=== PATIENT | male | born 1960 | race Caucasian/White ===

== ENCOUNTER → 2016-11-20 | Outpatient (CLI) | payer OTHER ==
--- NOTE | 2016-11-20 12:26 | DI ---
XR L-SPINE MIN 4 VW,11/20/2016 9:02 AM: Clinical History: Low back pain and radiculopathy. Previous Exam: None at this facility. Findings: AP, lateral, flexion and extension views of the lumbar spine are obtained, and demonstrate near compl ete loss of intervertebral disc height at the L5/S1 level with endplate sclerosis. There is some mild facet arthropathy. A nonobstructive bowel gas pattern is seen. No pathologic calcifications are seen. Impression: Mild degenerative changes of the lumbar spine worst at the L5/S1 level.
--- NOTE | 2016-11-20 12:36 | DI ---
XR C-SPINE COMPLETE MIN 4VW,11/20/2016 9:26 AM: Clinical History: Osteoarthritis and postsurgical changes of the spine. Previous Exam: None at this facility. Findings: AP, lateral, flexion and extension views of the cervical spine are obtained, and demonstrate postsurg ical changes consistent with anterior screw and plate fixation of C3-C6. There is grade 2 anterolisth esis of C6 on C7 with endplate osteophyte formation, but no evidence of instability on flexion or ext ension. There is significant endplate degenerative change at this level. The prevertebral soft tissues are unremarkable. The upper lungs are unremarkable. Impression: Grade 2 anterolisthesis of C6 on C7 and anterior screw and plate fixation of the cervical spine as ab ove.
== END ==
LOC: ORTHO 10:35
PROVIDERS: ATTEND Physician Assistant
DX: M47.26 Other spondylosis with radiculopathy, lumbar region (principal); M47.22 Other spondylosis with radiculopathy, cervical region; Z98.1 Arthrodesis status
CPT/HCPCS: 72050; 72110

== ENCOUNTER → 2016-11-28 | Outpatient (CLI) | payer OTHER ==
--- NOTE | 2016-11-28 14:18 | DI ---
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 Previous Exam: Plain films performed November 20, 2016 Informed signed consent was obtained prior to the procedure. The patient was informed of benefits and risks, to include but not be limited, to allergies to medications (skin preparation agents, local an esthetic, and contrast agent), infection, and "spinal" headaches. The lower back was prepped with an alcohol solution. 1% lidocaine without epinephrine was used for in tradermal and subcutaneous local anesthesia. Under fluoroscopic guidance, a 22 gauge spinal needle was then introduced into the spinal canal from the left paraspinal approach at the level of L3. This was repeated multiple times at lower levels due to difficulty. The fourth attempt was successful at the L3 level. A single pass was performed and this revealed droplets of clear colorless CSF. 15 mL of Omipaque 300 was injected into the spinal canal with fluoroscopic monitoring. Spot films of the lumbar spine were obtained followed by a cross table lumbar spine view. The patient tolerated the procedure well and wa s transferred to the CT scan suite for the CT myelogram. The patient tolerated the procedure well. The patient was then discharged home and was instructed to minimize activity for the rest of the day. The patient was also instructed to push fluids for the rem ainder of the day and to sleep on an extra pillow with the head up if possible. The patient was advis ed to watch for signs of an infection (including but not limited to redness, swelling, fever) or an u nusually severe headache. The patient was instructed to either contact the x-ray department directly or to report to the Emergency Room immediately if problems arose. Findings: Multiple fluoroscopic images are obtained demonstrating contrast within the thecal sac. Reading: Successful myelogram. CT pending.
--- NOTE | 2016-11-28 14:18 | DI ---
CT THORACIC SPINE W/CONTRAST,11/28/2016 10:15 AM: Clinical History: Osteoarthritis of the spine with radiculopathy. Previous Exam: None at this facility. Findings: Multiple helically acquired CT images are obtained through the thoracic spine following intrathecal a dministration of Isovue 300. Vertebral body height is preserved. There is mild loss of intervertebral disc height at multiple levels as well. The spinal cord descends normally with normal course and caliber. Individual intervertebral disc spaces: T1/2: There is mild bilateral neural foraminal narrowing. T2/3: No significant stenosis. T3/4: Small broad-based disc bulge without significant stenosis. T4/5: No significant stenosis. T5/6: No significant stenosis. T6/7: No significant stenosis. T7/8: No significant stenosis. T8/9: No significant stenosis. T9/T1: No significant stenosis. T10/11: No significant stenosis. T11/12: There is a small broad-based disc causing mild central canal stenosis without significant kristina roforaminal stenosis T12/L1: There is a broad-based disc bulge contributing to mild central canal stenosis without signifi cant neuroforaminal narrowing. Impression: Mild broad-based disc bulges at T. 11/12 and T12/L1 causing mild central canal stenosis. Small broad-based disc bulge at T3/4.
--- NOTE | 2016-11-28 15:16 | DI ---
CT LUMBAR SPINE W/CONTRAST,11/28/2016 10:15 AM: Clinical History: Osteoarthritis of the spine with radiculopathy of the lumbar region. Previous Exam: Plain films performed November 20, 2016 Findings: Multiple helically acquired CT images are obtained through the lumbar spine following the intrathecal administration of contrast. There is some fat density noted within the thecal sac causing some compression of the distal thecal s ac. The spinal cord descends normally with a normal conus at the L1 level. Individual intervertebral disc spaces: 12/L1: There is a small broad-based disc bulge without significant stenosis. L1/2: No significant stenosis. L2/3: There is a broad-based disc bulge causing mild central canal stenosis and mild bilateral neural foraminal narrowing. L3/4: There is a broad-based disc bulge noted without significant neural foraminal narrowing or centr al canal stenosis. L4/5: There is a broad-based disc bulge combining with some facet and ligamentum flavum hypertrophy t o cause moderate central canal stenosis which is partially due to epidural lipomatosis. There is mild bilateral neural foraminal narrowing. L5/S1: There is near complete loss of intervertebral disc height with disc desiccation and facet hype rtrophy and ligamentum flavum hypertrophy combining with some epidural lipomatosis, to cause severe c entral canal stenosis. There is severe bilateral neural foraminal narrowing noted as well. Impression: 1. Epidural lipomatosis which is the major factor to the central canal stenosis of the distal cord. 2. Advanced degenerative disc disease at L5/S1 with facet hypertrophy contributing to severe bilatera l neural foraminal narrowing.
--- NOTE | 2016-11-28 16:51 | DI ---
CT CERVICAL SPINE W/CONTRAST,11/28/2016 10:15 AM: Clinical History: Osteoarthritis of the spine with radiculopathy in the lumbar region. Previous Exam: Plain films of the cervical spine performed November 20, 2016 Findings: Multiple helically acquired CT images are obtained through the cervical spine after intrathecal admin istration of Isovue 300. The skull base is unremarkable. Postsurgical changes of the cervical spine are seen consistent with screw and plate fixation of C3-C6 . There is grade 1 anterolisthesis of C6 on C7 with uncovertebral joint osteophyte formation. There is some motion artifact which limits evaluation through this level. There is significant central canal stenosis throughout the cervical spine with only a small amount of contrast seen. This is predominantly congenital stenosis however, there are multiple levels of uncov ertebral joint osteophyte formation extending posteriorly. Individual intervertebral disc spaces: C2/3: There is congenital central canal stenosis at this level as well as some small uncovertebral kristian int and facet arthropathy contributing to moderate bilateral neural foraminal narrowing and moderate central canal stenosis. C3/4: There is disc desiccation and uncovertebral joint osteophyte formation with some congenital shane nosis. This causes focal moderate to severe central canal stenosis and moderate to severe bilateral n eural foraminal narrowing. C4/5: There is fusion at this level and some central canal stenosis. There is uncovertebral joint ost eophyte formation and facet hypertrophy causing moderate to severe left and mild right neuroforaminal narrowing and moderate central canal stenosis. C5/6: There is disc desiccation, uncovertebral joint osteophyte formation and facet hypertrophy. Ther e is congenital central canal stenosis which is made worse by the uncovertebral joint osteophytes. Th ere is moderate to severe bilateral neural foraminal narrowing and moderate central canal stenosis. C6/7: There is some mild central canal stenosis and there is some facet and uncovertebral joint osteo phyte formation noted. There is mild neuroforaminal narrowing and mild central canal stenosis. C7/T1: Mild facet hypertrophy without significant central canal nor neural foraminal narrowing. Impression: C2/3: There is congenital central canal stenosis at this level as well as some small uncovertebral kristian int and facet arthropathy contributing to moderate bilateral neural foraminal narrowing and moderate central canal stenosis. C3/4: There is disc desiccation and uncovertebral joint osteophyte formation with some congenital shane nosis. This causes focal moderate to severe central canal stenosis and moderate to severe bilateral n eural foraminal narrowing. C4/5: There is fusion at this level and some central canal stenosis. There is uncovertebral joint ost eophyte formation and facet hypertrophy causing moderate to severe left and mild right neuroforaminal narrowing and moderate central canal stenosis. C5/6: There is disc desiccation, uncovertebral joint osteophyte formation and facet hypertrophy. Ther e is congenital central canal stenosis which is made worse by the uncovertebral joint osteophytes. Th ere is moderate to severe bilateral neural foraminal narrowing and moderate central canal stenosis. C6/7: There is some mild central canal stenosis and there is some facet and uncovertebral joint osteo phyte formation noted. There is mild neuroforaminal narrowing and mild central canal stenosis. C7/T1: Mild facet hypertrophy without significant central canal nor neural foraminal narrowing.
== END ==
LOC: RAD 09:53 → MERGE 09:53 → EDBD 09:53
PROVIDERS: ATTEND Physician Assistant
DX: M47.26 Other spondylosis with radiculopathy, lumbar region (principal); M47.814 Spondylosis without myelopathy or radiculopathy, thoracic region; M47.22 Other spondylosis with radiculopathy, cervical region; Z98.1 Arthrodesis status
CPT/HCPCS: 72126; 72129; 72132; 72240; 72255; 72265

== ENCOUNTER → 2016-12-20 | Outpatient (CLI) | payer OTHER ==
--- NOTE | 2016-12-21 08:34 | DI ---
MRI LUMBAR SPINE SCAN WITHOUT IV CONTRAST, 12/20/2016 10:27 AM: Clinical History: Low back pain. Previous Exam: None. Technique: Sagittal and axial T2 weighted; sagittal T1 weighted and T2 STIR; and axial PD. The vertebral bodies are of normal height and size. There is abnormally increased signal intensity in the inferior half of the L5 vertebral body in the superior half of S1 consistent with edema secondar y to mild compression fractures or due to motion at this level. There is a hemangioma of the body of T12. There is disc space narrowing at L5-S1. The remaining disc spaces are of normal height. All lumb ar disc spaces show desiccation change. The cord terminates at T12. The conus medullaris is normal. T he T10-11 disc space is normal. T11-12 and T12-L1 disc spaces both have a circumferentially bulging b ut not herniated discs without canal or neural foraminal stenosis. The L1-2 disc space is normal. L2- 3 has a circumferentially bulging but not herniated disc without canal or neural foraminal stenosis. L3-4 disc space has a normal disc without canal or neural foraminal stenosis. Hypertrophic changes of the apophyseal joints are present bilaterally. L4-5 has a circumferentially bulging but not herniate d disc with degenerative change of the apophyseal joints bilaterally. There is a considerable amount of epidural fat posteriorly and laterally producing spinal stenosis. There is no neural foraminal shane nosis. L5-S1 has a circumferentially bulging but not herniated disc with hypertrophic changes of the apophyseal joints. There is no bony canal stenosis but there is a defect of stenosis secondary to a p rominent amount of epidural fat both anteriorly and posteriorly. There is no neural foraminal stenosi s. Readin. L4-5 and L5-S1 both have bulging but not herniated discs. At both levels, the bony canal is of no rmal caliber, but there is a prominent amount of epidural fat that effectively is producing narrowing or stenosis of the thecal sac. Levels do not show neural foraminal stenosis. Both levels do have deg enerative arthritic change. 2. There are bulging but not herniated discs without canal or neural foraminal stenosis at T11-12, T 12-L1, L2-3, and L3-4. There are degenerative arthritic changes in the apophyseal joints at L3-4. 3. There is increased signal intensity at the L5-S1 level in each vertebral body. This change can be secondary to mild compression fractures or edema secondary to motion at this level. 4. The T10-11 and L1-2 disc spaces are normal.
== END ==
LOC: MRI 10:15
PROVIDERS: ATTEND Neurological Surgery
DX: M48.07 Spinal stenosis, lumbosacral region (principal); M47.816 Spondylosis without myelopathy or radiculopathy, lumbar region; M47.814 Spondylosis without myelopathy or radiculopathy, thoracic region
CPT/HCPCS: 72148

== ENCOUNTER 2017-06-27 12:03 | Inpatient (IN) ==
[2017-06-27] MEDS ORDERED: Sodium Chloride 0.9% 1,000 ML PRIMARY IV ONE (12:34)
[2017-06-27] MEDS ORDERED: NORMAL SALINE 10 ML SYRINGE FLUSH IVP PRN (12:34)
[2017-06-27 12:40] LABS: BASOPHILS # (AUTO) 0.02 10*3/UL; BASOPHILS % (AUTO) 0.3 % (0-1); EOSINOPHILS # (AUTO) 0.17 10*3/UL; EOSINOPHILS % (AUTO) 2.4 % (0-8); Hematocrit [HCT] 40.5 % (42.0-52.0); Hemoglobin [HGB] 13.8 g/dL (14.0-18.0); LYMPHOCYTES # (AUTO) 1.67 10*3/uL; MEAN CORPUSCULAR HEMOGLOBIN 31.9 PG (27-31); MEAN CORPUSCULAR HGB CONC 34.1 g/dL (33-37); MEAN CORPUSCULAR VOLUME 93.8 FL (80-90); MEAN PLATELET VOLUME 10.3 FL (7.4-12.2); MONOCYTES # (AUTO) 0.87 10*3/UL (0.3-0.8); NEUTROPHILS # (AUTO) 4.45 10*3/UL; NEUTROPHILS % (AUTO) 61.6 % (50-80); RED BLOOD COUNT 4.32 10^6/uL (4.70-6.10)
[2017-06-27 12:41] LABS: PLATELET MORPHOLOGY COMMENT NORMAL MORPHOLOGY (NORM); RBC MORPHOLOGY COMMENT NORMAL MORPHOLOGY (NORM); WBC MORPHOLOGY COMMENT NORMAL MORPHOLOGY (NORM)
[2017-06-27 12:49] LABS: BLOOD UREA NITROGEN 15 mg/dL (7-22); BUN/CREATININE RATIO 16.66 (6-20); SERUM ALBUMIN 3.9 g/dL (3.5-4.8)
--- NOTE | 2017-06-27 12:59 | EKG ---
[address] [address] Measurements Intervals [place] Rate: 102 P: 59 GA: 137 QRS: -2 QRSD: 91 T: 31 QT: 341 QTc: 400 Interpretive Statements SINUS TACHYCARDIA ABNORMAL RHYTHM ECG Compared to ECG 12/27/2016 12:16:07 Sinus rhythm no longer present Intraventricular conduction delay no longer present Electronically Signed On 06-27-17 15:42:14 MST by Edwin Neal [id number]
[2017-06-27] MEDS ORDERED: HYDROmorphone 2 MG/1 ML IVP ONE ×2 (13:03→15:43)
[2017-06-27] MEDS ORDERED: ONDANSETRON 4 MG/2 ML VIAL IVP ONE (13:04)
--- NOTE | 2017-06-27 14:16 | DI ---
CERVICAL SPINE SERIES, 06/27/2017 12:33 PM: Clinical History: Neck pain following recent cervical fusion. Previous Exam: 06/07/2017. An AP and a crosstable lateral view are submitted. The patient is status post anterior fusions from C 3-4 through C6-7 and status post laminectomies with new posterior fusions between C3 and T2. Posterio r fusions are accomplished with metallic struts transfixed with screws inserted through the lamina an d the cervical spine and through the pedicles at T1 and T2. Posterior alignment is normal. C1 articul ates normally with C2 and the occiput. Prevertebral soft tissue planes are unchanged. Readin. Status post recent laminectomies from C3-T2 with posterior fusions accomplished with metallic str uts transfixed with screws inserted into the cervical lamina and pedicles at T2 and T1. 2. Status post prior fusions anteriorly between C3-4 and C6-7.
--- NOTE | 2017-06-27 14:32 | DI ---
CT THORACIC SPINE SCAN, 06/27/2017 12:33 PM : Clinical History: Pain. Recent cervicothoracic fusion. Previous Exam: 11/28/2016. Scans are obtained from C7 to L1 without IV contrast. Sagittal and coronal reformatted images are gen erated. The vertebral bodies are of normal height and size. The disc spaces are normal. There are no fracture s. Posterior alignment and posterior elements are normal. Pedicles are normal. Paravertebral soft tis aden planes are normal. There is diffuse osteoporosis. Scans through the lung show bullous emphysema. READIN. Screws transfixing metallic struts are present at the pedicles of T1 and T2. 2. No significant abnormality is otherwise noted. 3. Osteoporosis. 4. Bullous emphysema.
--- NOTE | 2017-06-27 15:07 | DI ---
CT CERVICAL SPINE SCAN, 06/27/2017 12:33 PM : Clinical History: Neck pain. Recent cervical and thoracic fusion. Previous Exam: 11/28/2016. Scans are performed from T2-3 to the dens of C2 without IV contrast. Sagittal and coronal reformatted images are generated. Curved coronal reformatted images and axial reformatted images angled through the disc spaces are also performed. Since the prior exam, the patient has undergone anterior fusions at C3-4, C5-6, and C6-7 and these fu sions are not solid. The patient has had laminectomies at C2-T1 with posterior fusions accomplished w ith metallic struts transfixed to the lateral masses from C3-C7 and with pedicle screws at T1 and T2. The C4-5 disc space has been previously fused and is solid. I cannot be certain if an anterior fusio n has been performed at C7-T1 but there is now anterior subluxation of C7 on T1 by 1-2 mm. There is r esidual soft tissue gas posteriorly at the site of the metallic struts. Scan artifacts are present in the canal between C3 and T1. C1 articulates normally with C2 and the occiput. Prevertebral soft tiss ue planes are normal. READIN. Status post anterior fusions at C3-4, C5-6, and C6-7 and these fusions are not solid. The patient has had a previous anterior fusion at C4-5 that is solid. 2. Status post laminectomies from the C2 level through T1. Posterior fusions have been performed wit h metallic struts transfixed to the lateral masses between C3 and C7 and with pedicle screws at T1 an d T2. 3. There is anterior subluxation of C7 on T1 by 1-2 mm. 4. Scan artifacts are present throughout the canal making assessment difficult if not impossible at multiple levels.
--- NOTE | 2017-06-27 16:50 | PDOC ---
Back Pain / Injury HPI - General Chief Complaint: Neck / Back Complaint Stated Complaint: back pain Date Seen by Provider: 06/27/17 Time Seen by Provider: 12:35 Source: Patient, EMS Exam Limitations: POSITIVE: No limitations Nurse's Notes Reviewed & Considered: Yes EMS Report Reviewed & Considered: Verbal - History of Present Illness Initial Comments: The patient is a 56-year-old male who is brought to the emergency department with back pain. He underwent extensive cervical fusion from C3-T1 per Dr. peng in [place] last . He was discharged from the hospital on Saturday and seemed to be doing fairly well at that time. Yesterday he turned in bed and felt some type of pop. Since then he has had significant increase in pain in the midthoracic region. He denies any chest pain or shortness of breath. He has not had any fevers or chills. He was taking Percocet for pain and had tried Flexeril. This was not helping. Dr. peng had phoned in some Valium for spasm which he took 10 mg earlier this morning. His pain was bad enough that he was unable to get up on his own and subsequently EMS was called to bring the patient here for evaluation. - Patient Home Medications Home Medications: Home Medications gabapentin 300 mg capsule 300 mg PO BID #2 cap 12/27/16 oxycodone-acetaminophen 10 mg-325 mg tablet 1 tab PO Q6H PRN #90 tab 06/26/17 Cyclobenzaprine HCl [Flexeril] 10 mg PO TID 06/27/17 Diazepam [Valium] 10 mg PO TID 06/27/17 Oxycodone HCl/Acetaminophen [Oxycodone-Acetaminophen 5-325] 1 tab PO Q6H PRN 05/16 Sulfameth/Trimeth 800/160 Tab [Bactrim DS 800/160 Tab] 1 ea PO BID 06/27/17 - Patient Allergies Allergies/Adverse Reactions: Allergies 3 Allergy/AdvReac Type Severity Reaction Status Date / Time No Known Allergies Allergy Verified 06/28/17 06:39 Past Medical History - heen HEENT History: Denies History Cardiovascular History: Denies History Respiratory History: Denies History Gastrointestinal History: Denies History Genitourinary History: Denies History Endocrine History: Denies History Musculoskeletal History: Back Pain, Back Injury Prosthesis or Implant: Yes (RODS C2-T1) Additional Musculoskeletal History: MULTIPLE BACK SURGERIES. C2-T1, L5-S1 FUSION, CERVICAL FUSION C3,4,5,6,7 WHICH BROKE AND THAT IS WHY HAS RODS NOW. Neurological History: Denies History Blood Disorders: Denies History Psychiatric History: Denies History Male Reproductive History: Denies History Cancer History: Denies History In Past Year Been Physically Harmed or Verbally Threatened: No History of MDRO: No Tobacco Use: Former Smoker In the Past 12 Months, Have Used or Abuse Any Substance: None Previous Surgical History: Yes Type / Date of Surgery: BACK SURGERIES. MOST RECENT IS 06/20/17 Anesthesia Reactions: Yes Significant Family History: No pertinent family hx Past Medical History Reviewed: Reviewed - No Changes ROS - Limitations ROS Limitations: No Limitations Constitution: DENIES: Chills, Fever Cardiovascular: DENIES: Chest Pain Respiratory: DENIES: Shortness Of Breath Neurological: DENIES: Headache, Numbness, Weakness Gastrointestinal: REPORTS: Denies GI Symptoms Genitourinary: REPORTS: Denies Symptoms Eyes: REPORTS: Denies Symptoms ENT: REPORTS: Denies Symptoms Skin: DENIES: Rash Back Physical Assessment - General Appearance General Appearance: REPORTS: Alert, Cooperative, No Acute Distress - HEENT HEENT: POSITIVE: Head Inspection Nml, Eyes Inspection Nml, Ears Inspection Nml, Nose Inspection Nml, Pharynx Inspect. Nml - Respiratory / CVS Respiratory / CVS: POSITIVE: Chest Non Tender, Breath Sounds Normal, No Respiratory Distress, Heart Sounds Normal, Regular Rate/Rhythm - Abdomen Abdomen: Soft: (All Quadrants), No Splenomegaly: (All Quadrants) - Back Back: REPORTS: Other (The patient does have tenderness in the mid and upper thoracic spine, no obvious swelling or deformity, he does have a wound VAC on the posterior incision on his neck) - Skin Skin: REPORTS: Intact, No Rash - Extremities Extremity Assessment: Normal ROM: (ALL), Normal Inspection: (ALL) Back Progress - Results Reviewed by me Xrays/CTs/US Reviewed: Yes Discussed with Radiologist: Yes Radiology Findings: CT scan of the cervical spine reveals postoperative changes with no evidence of complication, CT scan of the thoracic spine reveals degenerative changes with no evidence of acute fracture or any other acute findings per radiologist, plain films were also done and show normal alignment of the hardware from recent fusion. CTA of the chest is negative for PE, he has some mild aortic root dilation per radiologist. Lab Results Reviewed by Me: Yes CBC and BMP: 06/27/17 12:25 06/27/17 12:25 EKG Interpretation:: POSITIVE: Normal Sinus Rhythm, Normal Rate, Normal QRS, Normal ST/T - Patient's Progress MDM / ED Course: The patient was having significant pain on arrival and received Dilaudid 1 mg IV and Zofran 4 mg IV. This improved his pain while at rest however he still had significant pain with any attempts at movement. Shortly after arrival I did discuss the patient with Dr. peng. He recommended plain AP and lateral films of his neck comparison with his postoperative films. In addition CT scan of the cervical spine and thoracic spine was done. No acute findings were noted on any of the studies. Patient was subsequently again discussed with Dr. peng. He thought it would be reasonable to admit the patient for pain management. There did not appear to be any acute surgical needs. Because of the mid thoracic back pain and EKG had also been done shortly after arrival which did not show any acute changes and his troponin was normal. Blood work was all essentially unremarkable except for mildly elevated CRP. The patient did require repeat treatment with Dilaudid for pain after his CTA. The patient was discussed with Dr. Nava and arrangements were made to admit the patient for further pain management. - Consult Counseled: POSITIVE: Patient, Family, RE: Lab Results, RE: Radiology Results, RE : DX Patient Care Time - Estimated PCT Patient Care Time (In Minutes): 40 Vital Signs - Recent Vital Signs Vital Signs: Vital Signs (Last 8 hours) Temp Pulse Resp BP Pulse Ox 06/28/17 05:00 97.4 F 97 146/86 90 06/28/17 03:00 95 06/28/17 00:08 97.2 F 114 H 20 126/80 94 06/27/17 23:00 94 - VS Reviewed Vital Signs Reviewed: Yes Discharge Clinical Impression: Status post cervical spinal fusion, Intractable back pain Discharge Disposition: Admit to Observation Condition: Fair
--- NOTE | 2017-06-27 17:02 | DI ---
CT ANGIOGRAM OF THE CHEST, 06/27/2017 2:13 PM : Clinical History: Back pain. Hypoxia. Recent neck surgery. Previous Exam: None at this facility. Scans are performed from the base of the neck to the lower lung bases following IV administration of 65 mL of Isovue 370. Proprietary automated bolus tracking software was not used to verify the timing of the injection. The base of the neck and thoracic inlet are normal, but the lower neck region is obscured by metallic artifacts from the recent neck surgery. There are no abnormal axillary, supraclavicular, mediastinal , or hilar nodes. The heart is normal. There is aneurysmal dilatation of the ascending aorta with AP and transverse diameters of 35 mm. There is no evidence of an aortic dissection. There is pulmonary m aterial hypertension without evidence of pulmonary embolism or pulmonary embolism with infarction. Bu llae are present in the apices indicating the patient does have bullous emphysema. There is what most likely represents pleural thickening posteriorly in both lungs. No pulmonary nodules are identified. The limited views of the adrenal glands, liver, pancreas, and spleen are normal. READIN. There is no evidence of pulmonary embolism or pulmonary embolism with infarction. There is pulmon rowena arterial hypertension. 2. Bullous emphysema. Pleural thickening is suspected posteriorly. There is no acute infiltrate or e ffusion. 3. Aneurysmal dilatation of the ascending aorta with AP and transverse dimensions of 35 mm.
--- NOTE | 2017-06-27 17:03 | PDOC ---
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 Bowie. He said he did well postsurgery was discharged on Saturday pain seemed to be controlled over the weekend however, on Saturday he sat up and had pain in the interscapular area described as severe worse with certain movements and positions. he was limited in his movement and preferred to lay down on his recliner and have been sleeping in his recliner. There is no weakness. He said he did have numbness in his hands and that's was before the surgery and they seem to be improved and he is not taking his gabapentin anymore. Because of the continuous pain they did speak with Dr. Bowie and he put them on Valium which was today. In addition he was already on Percocet which he takes the every 4 hours and Flexeril every 8 hours. Today the pain was severe and because of that he came into the ER he had scans in the ER there is no evidence of fluid collection it was discussed with Dr. Bowie he suggested admission for pain control. He did receive IV Dilaudid and also received fentanyl on his way here and his pain seemed to be better controlled now. He denied weakness denied incontinence of urine or bladder. By the time I saw him he was rating his pain at 4 out of 10. Past Medical History Medical History: 1. History of for osteoarthritis in lumbar area status post fusion in December 2016. 2. History of osteoarthritis of cervical spine status post fusion in March 2017. 3. History of neck fusion surgery in 2017 Surgical History: 1.Status post lumbar fusion. 2. Status post cervical fusion. 3. Status post tonsillectomy Family History: Reviewed an Not Pertinent Past Social History: Used to smoke doesn't drink no drugs. Tobacco Use: Former Smoker In the Past 12 Months, Have Used or Abuse Any of the Following Substance: None Alcohol Use: None Medication / Allergies Home Medications: Home Medications 3 Medication Instructions Recorded Confirmed Type gabapentin 300 mg capsule 300 mg PO BID #2 cap 12/27/16 06/27/17 Clinic oxycodone-acetaminophen 10 mg-325 1 tab PO Q6H PRN #90 tab 06/26/17 06/27/17 Rx mg tablet Cyclobenzaprine HCl [Flexeril] 10 mg PO TID 06/27/17 06/27/17 History Diazepam [Valium] 10 mg PO TID 06/27/17 06/27/17 History Oxycodone HCl/Acetaminophen 1 tab PO Q6H PRN 06/27/17 06/27/17 History [Oxycodone-Acetaminophen 5-325] Sulfameth/Trimeth 800/160 Tab 1 ea PO BID 06/27/17 06/27/17 History [Bactrim DS 800/160 Tab] Allergies/Adverse Reactions: Allergies 3 Allergy/AdvReac Type Severity Reaction Status Date / Time No Known Allergies Allergy Verified 06/27/17 16:27 Review of Systems - Review of Systems All Systems: Reviewed & No Additional Complaints Except as Stated Exam - Vitals Vital Signs: Vital Signs Temperature 97.6 F Temperature Source Temporal Artery Scan Pulse Rate [Pulse Oximeter] 109 Respiratory Rate 20 Blood Pressure [Right Arm] 123/75 Pulse Ox 95 Oxygen Flow Rate 2 Oxygen Delivery Method Nasal Cannula Height 5 ft 11 in Weight 232 lb - General General Appearance: No Acute Distress, Cooperative, Obese - Head Head Exam: Normal Inspection - Eye Eye Exam: POSITIVE: Normal Appearance - ENT ENT Exam: POSITIVE: Normal Exam - Neck Additional Neck Exam Details: He is wearing and neck collar - Respiratory Respiratory Exam: POSITIVE: Clear to Auscultation - Bilaterally - Cardiovascular Cardiovascular Exam: POSITIVE: RRR - GI/Abdominal GI/Abdominal Exam: POSITIVE: Normal Bowel Sounds, Non Tender, Non Distended, Soft, No Organomegaly - Rectal Rectal Exam: POSITIVE: Deferred - External Exam: POSITIVE: Deferred - Extremities Extremities Exam: POSITIVE: Normal Inspection - Neurological Neurological Exam: POSITIVE: Alert, Oriented x 3, CN II-XII Intact, No Facial Droop, Speech Intact / Clear, Moves All Extremities Equally - Psychiatric Psychiatric Exam: POSITIVE: Normal Affect - Integumentary Integumentary Exam: POSITIVE: Normal Color Results - Labs CBC and BMP: 06/27/17 12:25 06/27/17 12:25 - Imaging Status: Report Reviewed by Me (CT chest 1. There is no evidence of pulmonary embolism or pulmonary embolism with infarction. There is pulmonary arterial hypertension. 2. Bullous emphysema. Pleural thickening is suspected posteriorly. There is no acute infiltrate or effusion. 3. Aneurysmal dilatation of the ascending aorta with AP and transverse dimensions of [address] thoracic spine 1. Screws transfixing metallic struts are present at the pedicles of T1 and T2. 2. No significant abnormality is otherwise noted. 3. Osteoporosis. 4. Bullous emphysema. CT cervical spine 1. Status post anterior fusions at C3-4, C5-6, and C6-7 and these fusions are not solid. The patient has had a previous anterior fusion at C4-5 that is solid. 2. Status post laminectomies from the C2 level through T1. Posterior fusions have been performed with metallic struts transfixed to the lateral masses between C3 and C7 and with pedicle screws at T1 and T2. 3. There is anterior subluxation of C7 on T1 by 1-2 mm. 4. Scan artifacts are present throughout the canal making assessment difficult if not impossible at multiple levels.) Assessment and Plan - Patient Problems (1) Status post cervical spinal fusion Current Visit: Yes Status: Acute Comment: I did speak with Dr. Bowie he suggested to put him on diazepam, he is okay with pain medication to control his pain. He Expect him to improve within a short period of time he did suggest an MRI tomorrow of the neck if he still have pain. He is okay with the physical therapy and OT to see him tomorrow to see if he can get up and walk. Code(s): Z98.1 - Arthrodesis status
[2017-06-27] MEDS ORDERED: DOCUSATE 100 MG CAPSULE PO PRN (17:05)
[2017-06-27] MEDS ORDERED: LIDOCAINE W/ SODIUM BICARB 0.5 ML SYR SUBD PRN (17:05)
[2017-06-27] MEDS ORDERED: ONDANSETRON 4 MG/2 ML VIAL IVP PRN (17:05)
[2017-06-27] MEDS ORDERED: DIAZEPAM 5 MG TABLET PO PRN (17:19)
[2017-06-27] MEDS ORDERED: Sodium Chloride 0.9% 1,000 ML IV SCH (17:30)
[2017-06-27] MEDS: HYDROmorphone 2 MG/1 ML IVP PRN ×2 (17:30→22:49)
[2017-06-27] MEDS: oxyCODONE/APAP 10/325 Tab 1 EACH TAB PO PRN (19:52)
[2017-06-27] MEDS: CALCIUM CARBONATE 500 MG (TUMS) CHEWABLE TABLET PO PRN (19:59)
[2017-06-27] MEDS: SULFAMETHOXAZOLE/TRIMETHOPRIM 800/160 MG TABLET PO SCH (20:00)
[2017-06-27] MEDS: CYCLOBENZAPRINE 10 MG TABLET PO SCH (20:01)
[2017-06-28] MEDS: oxyCODONE/APAP 10/325 Tab 1 EACH TAB PO PRN ×4 (01:45→21:58)
[2017-06-28] MEDS: HYDROmorphone 2 MG/1 ML IVP PRN ×5 (04:57→22:52)
[2017-06-28] MEDS: SULFAMETHOXAZOLE/TRIMETHOPRIM 800/160 MG TABLET PO SCH ×2 (08:47→21:58)
[2017-06-28] MEDS: CYCLOBENZAPRINE 10 MG TABLET PO SCH ×3 (08:47→21:59)
[2017-06-28] MEDS: NORMAL SALINE 10 ML SYRINGE FLUSH IVP PRN (09:59)
[2017-06-28] MEDS ORDERED: DIAZEPAM 5 MG TABLET PO PRN (11:34)
[2017-06-28] MEDS ORDERED: DIAZEPAM 10 MG/2 ML (5 MG/1 ML) CARPUJECT IVP ONE (11:47)
--- NOTE | 2017-06-28 13:44 | DI ---
EXAM: MR Lumbar Spine Without Intravenous Contrast CLINICAL HISTORY: post operative back pain TECHNIQUE: Magnetic resonance images of the lumbar spine without intravenous contrast in multiple planes. COMPARISON: Lumbar spine x-rays dated 02/15/17, lumbar spine MRI dated 12/20/16. FINDINGS: Vertebrae: Post surgical changes from posterior john and transpedicular screw fixation spanning L5-S1 with associated laminectomies. Marrow: No significant change in the increased T1-weighted and T2- weighted signal intensity along the posterior half of the T12 vertebral body, previously characterized as a hemangioma. Spinal cord: The conus terminates at T12-L1. Soft tissues: No abnormal fluid collections seen in the soft tissues. DISCS/SPINAL CANAL/NEURAL FORAMINA: T12-L1: Small broad-based disc bulge without significant central or foraminal stenosis. L1-L2: Unremarkable. No significant disc disease. No stenosis. L2-L3: Broad-based disc bulge without significant central or foraminal stenosis. L3-L4: Broad-based disc bulge without significant central foraminal stenosis. L4-L5: The particulars/foraminal disc bulge with an annular tear. Disc bulge impinges upon the thecal sac without significant central canal stenosis, which has AP diameter of 14 mm. Mild narrowing of the left neural foramen. L5-S1: Disc osteophyte complex and bulge impinges upon the thecal sac. Status post laminectomy. No stenosis. IMPRESSION: 1. Post surgical changes from posterior john and transpedicular screw fixation spanning L5-S1 with associated laminectomy. 2. L4-5 left articular/foraminal disc bulge with an annular tear. Disc bulge mildly narrows the left neural foramen. 3. Small broad-based disc bulges at T12-L1, L2-3, and L3-4, without significant foraminal or central canal stenosis. 4. Unchanged appearance of a T12 vertebral body lesion, previously characterized as a hemangioma.
--- NOTE | 2017-06-28 14:57 | DI ---
EXAM: MR Thoracic Spine Without and With Intravenous Contrast CLINICAL HISTORY: post op back pain TECHNIQUE: Magnetic resonance images of the thoracic spine without and with intravenous contrast in multiple planes. COMPARISON: CT of the thoracic spine dated 06/27/17. MRI of the lumbar spine dated 06/28/17. Lumbar spine MRI dated 12/20/16. FINDINGS: Vertebrae: Patient is status post anterior cervical spine fixation as well as posterior fixation spanning T1 and T2. No acute fracture. Marrow: Incidental note is again made of a T2 hyperintense hemangioma along the posterior aspect of T12, unchanged compared to the prior lumbar MRI exams. Discs/spinal canal/neural foramina: No acute findings. No significant disc disease. No spinal canal stenosis. Spinal cord: Unremarkable. Normal signal. No abnormal enhancement. Soft tissues: A 7.5 x 7.2 x 4.0 cm T2 hyperintense, T1 hypointense, non-walled, nonenhancing fluid collection is seen in the subcutaneous soft tissues posteriorly, spanning the levels of C7-T3. IMPRESSION: 1. Patient is status post anterior cervical spine fixation as well as posterior thoracic spine fixation spanning T1 and T2. 2. A 7.5 x 7.2 x 4.0 cm nonenhancing fluid collection in the posterior subcutaneous soft tissues, spanning the levels of C7-T3. This most likely represents a postsurgical seroma.
[2017-06-28] MEDS: Methocarbamol Tab 500 MG TAB PO SCH ×2 (15:05→21:58)
--- NOTE | 2017-06-28 15:13 | DI ---
EXAM: MR Cervical Spine Without and With Intravenous Contrast CLINICAL HISTORY: post op back pain TECHNIQUE: Magnetic resonance images of the cervical spine without and with intravenous contrast in multiple planes. COMPARISON: CT of the cervical spine and thoracic spine dated 3 or 118. MRI of the lumbar spine obtained 06/28/17 and 12/20/16. FINDINGS: Vertebrae: Posterior nonenhancing granulation tissue versus fluid at the levels of C6-T2 where there has been resection of the posterior spinal elements. The patient is status post anterior plate and screw fixation of the cervical spine spanning C3-C7 and posterior fixation spanning C3-T2. No acute fracture. Spinal cord: Unremarkable. Normal signal. No abnormal enhancement. Soft tissues: An 8.3 x 7.5 x 3.6 cm nonenhancing subcutaneous fluid collection is seen posteriorly, spanning the approximate levels of C5-T3. DISCS/SPINAL CANAL/NEURAL FORAMINA: No intra-axial fluid collection seen in the canal or abnormal enhancement. Visible hardware degrades evaluation for spinal or foraminal stenosis. IMPRESSION: 1. An 8.3 x 7.5 x 3.6 cm posterior nonenhancing subcutaneous fluid collection, spanning the approximate levels of C5-T3 most likely represents a post surgical seroma. 2. Posterior nonenhancing granulation tissue versus seroma at the levels of C6-T2 where there has been resection of the posterior spinal elements.
--- NOTE | 2017-06-28 20:42 | PDOC(PROG) ---
Date and Time of Service: 06/28/2017, 2034 Interval History: Patient seen and examined twice through the day. He has thoracic spine and muscle pain around the T4-T6 range. It is mostly radiating to the right paraspinal musculature. We did do MRIs and I discussed with his neurosurgeon in [place], and his MRIs were consistent with a seroma which would be expected postoperatively. He does not have any sign of infection. No chest pain, shortness breath, nausea or vomiting. Muscle relaxants have been helping minimally the tend wear off after about 3 hours of use. Objective : Data - Labs CBC and BMP: 06/27/17 12:25 06/27/17 12:25 - Imaging MRI Status: Report Reviewed by Me (I reviewed the reports and discuss them with neurosurgery from [place]. Consistent with postoperative seroma.) Objective : Exam - General General Appearance: No Acute Distress, Cooperative Additional General Exam Details: Vital Signs (24 hrs) Temp Pulse Resp BP Pulse Ox 06/28/17 20:12 97.5 F 107 H 20 112/74 94 06/28/17 19:00 90 18 95 06/28/17 17:00 97.6 F 90 18 129/90 95 06/28/17 15:00 96 06/28/17 11:58 97.6 F 96 16 118/71 93 06/28/17 11:00 93 06/28/17 07:39 98 F 106 H 20 110/76 96 06/28/17 07:00 95 06/28/17 05:00 97.4 F 97 146/86 90 06/28/17 03:00 95 06/28/17 00:08 97.2 F 114 H 20 126/80 94 06/27/17 23:00 94 06/27/17 21:00 97 F 105 H 20 122/74 95 - Head Head Exam: Normal Inspection, Normocephalic, Atraumatic - Eye Eye Exam: No Scleral Icterus - Neck Additional Neck Exam Details: Has C-spine collar in place postoperatively. - Respiratory Respiratory Exam: Clear to Auscultation - Bilaterally, Breathing Non Labored - Cardiovascular Cardiovascular Exam: RRR, No Murmur, No Clicks, No Gallops, No Rubs, No JVD - GI/Abdominal GI/Abdominal Exam: Normal Bowel Sounds, Non Tender, Non Distended, Soft - Extremities Extremities Exam: No Clubbing Present, No Edema Present, No Cyanosis Present - Neurological Neurological Exam: Alert, Oriented x 3, No Facial Droop, Speech Intact / Clear, Moves All Extremities Equally Assessment and Plan - Patient Problems (1) Status post cervical spinal fusion Current Visit: Yes Status: Acute Code(s): Z98.1 - Arthrodesis status (2) Seroma Current Visit: Yes Status: Acute (3) Intractable back pain Current Visit: Yes Status: Acute Code(s): M54.9 - Dorsalgia, unspecified (4) COPD (chronic obstructive pulmonary disease) Current Visit: Yes Status: Acute Code(s): J44.9 - Chronic obstructive pulmonary disease, unspecified Qualifiers: COPD type: emphysema Emphysema type: unspecified Qualified Code(s): J43.9 - Emphysema, unspecified - Assessment / Plan Additional Assessment/Plan Details: This very complex postoperative pain syndrome in that it is below the surgical site, but involves what appears to be muscle spasm. MRI scans significant only for seroma. I don't think there is any infection. His white count is normal, there is no evidence of pulmonary emboli, but due to the complexity of pain control and muscle relaxation that's necessary to help this patient improve and increase mobility, he really needs to be here as an inpatient, for continued pain medication monitoring, still requiring IV narcotics for pain, and I think would benefit from physical therapy and occupational therapy. Spoke with neurosurgery, and I may consider doing a trigger point tomorrow if we do not see any success overnight with increasing muscle relaxants and adding Robaxin to the regimen. I also increased Valium frequency. Above plan was discussed with patient and his in detail.
[2017-06-29] MEDS: oxyCODONE/APAP 10/325 Tab 1 EACH TAB PO PRN ×3 (04:00→11:50)
[2017-06-29 05:44] LABS: BASOPHILS # (AUTO) 0.02 10*3/UL; BASOPHILS % (AUTO) 0.3 % (0-1); EOSINOPHILS # (AUTO) 0.19 10*3/UL; EOSINOPHILS % (AUTO) 2.7 % (0-8); Hematocrit [HCT] 39.5 % (42.0-52.0); LYMPHOCYTES # (AUTO) 1.34 10*3/uL; MEAN CORPUSCULAR HEMOGLOBIN 31.4 PG (27-31); MEAN CORPUSCULAR HGB CONC 32.9 g/dL (33-37); MEAN CORPUSCULAR VOLUME 95.4 FL (80-90); MEAN PLATELET VOLUME 10.3 FL (7.4-12.2); MONOCYTES # (AUTO) 0.89 10*3/UL (0.3-0.8); MONOCYTES % (AUTO) 12.5 % (5-15); NEUTROPHILS # (AUTO) 4.63 10*3/UL; RED BLOOD COUNT 4.14 10^6/uL (4.70-6.10)
[2017-06-29 05:56] LABS: PLATELET MORPHOLOGY COMMENT NORMAL MORPHOLOGY (NORM); RBC MORPHOLOGY COMMENT NORMAL MORPHOLOGY (NORM); WBC MORPHOLOGY COMMENT NORMAL MORPHOLOGY (NORM)
[2017-06-29 06:00] LABS: BLOOD UREA NITROGEN 15 mg/dL (7-22)
[2017-06-29] MEDS: HYDROmorphone 2 MG/1 ML IVP PRN (06:17)
[2017-06-29] MEDS: NORMAL SALINE 10 ML SYRINGE FLUSH IVP PRN (06:17)
[2017-06-29 07:19] LABS: Erythrocyte Sediment Rate 90 MM/HR (0-15)
[2017-06-29] MEDS: Methocarbamol Tab 500 MG TAB PO SCH ×2 (08:05→14:56)
[2017-06-29] MEDS: SULFAMETHOXAZOLE/TRIMETHOPRIM 800/160 MG TABLET PO SCH (08:05)
[2017-06-29] MEDS: CYCLOBENZAPRINE 10 MG TABLET PO SCH ×2 (08:05→14:56)
[2017-06-29 11:11] VITALS: BP 131/78; RESP 20; TEMP 97; O2SAT 96
[2017-06-29] MEDS: CALCIUM CARBONATE 500 MG (TUMS) CHEWABLE TABLET PO PRN (11:50)
[2017-06-29] MEDS ORDERED: methylPREDNISolone ACETATE 40 MG/1 ML VIAL IM ONE (12:41)
[2017-06-29] MEDS ORDERED: Lidocaine 1% 10 MG/ML - 20 ML VIAL SUBCUT ONE (12:41)
--- NOTE | 2017-06-29 14:43 | DI ---
EXAM: XR Chest, 1 View CLINICAL HISTORY: hypoxia post recent surgery TECHNIQUE: Frontal view of the chest. COMPARISON: Chest x-ray dated 12/27/16 FINDINGS: Lungs: Unremarkable. No consolidation. Pleural space: Unremarkable. No pneumothorax. Heart: Unremarkable. No cardiomegaly. Mediastinum: Unremarkable. Bones/joints: Unremarkable. IMPRESSION: Unremarkable chest x-ray.
--- NOTE | 2017-06-29 14:54 | PROCEDURE1 ---
Procedure - - Date and Time of Service: 06/29/2017, 1350 Procedure Performed: Other (Trigger point injections) Procedure Note: Procedure Performed: Trigger point injection, trapezius muscle, bilateral Date Procedure Performed: 06/29/2017 Indications for Procedure: Point tenderness in trapezius muscle beds, bilaterally Diagnosis: Bilateral trapezius muscle pain Patient Profile: This is a 56-year-old male who recently had a cervical fusion with a posterior approach going through T2. He was admitted with acute postoperative pain. Anesthesia: Local, 1% lidocaine Description of Procedure: After palpation of the trigger points, the area was prepped in the usual fashion. A wheal was made with 1% lidocaine at each site in the trapezius muscle bed on both the right and the left side. 10 mg of Depo- Medrol with 2-1/2 mL of lidocaine was then injected into the muscle bed bilaterally. Hemostasis was achieved. Band-Aids were applied. The patient reported significant reduction in his pain of over 50% bilaterally within minutes of the injections. Disposition: Patient is on the medical floor the hospital. He will be discharged pending resolution of the pain. A chest x-ray was done post procedure and there was no evidence of any pneumothorax.
--- NOTE | 2017-06-29 15:00 | DCSUMMARY ---
Hospitalization Summary Admit Date: 06/27/2012 Discharge Date: 06/29/17 Primary Diagnosis:: severe acute intractable postoperative pain Hospital Course: This very pleasant 56-year-old male that recently had a cervical through upper thoracic fusion done in [place], [place]. Patient presented with increased pain, decreased ability to move his upper extremities, and is very difficult for him to even sit up in bed. Despite addition of Dilaudid IV, despite addition of Robaxin, the patient's pain persisted. We discussed the possibility after examination that these could be issues with his surgery site so we did do MRI scans of the cervical, lumbar, and thoracic region, and there was no evidence of any infection or other issues. There was a seroma noted, but this would be expected postoperatively. The incision itself is clean, dry, intact, mild hyperemia but no evidence of erythema to suggest cellulitis. In palpation of the patient's spine is pain was more isolated in the T4-T6 range laterally in the paraspinal musculature and trapezius muscle in particular. I did do trigger point injections, see procedure note elsewhere, using lidocaine and Depo-Medrol. Patient improved significantly, and his pain was, in his mind, much more manageable from by mouth standpoint. He did not think he would require any further IV Dilaudid. He did not feel that Robaxin helped with his muscle reaction. He stated that he had Percocet, Valium, and Flexeril home. He felt that would be enough to manage. He did want to go home. He has follow-up already with neurosurgery. No other major medical issues during the hospital stay. Labs are appropriate, with no evidence of elevation in white blood cell count, inflammatory markers are up including sedimentation rate and so forth, but again this would be expected postoperatively. No chest pain, shortness breath, nausea or vomiting. Pain in neck better controlled. Trigger points really controlled back pains. Assessment and Plan: 1. As per discharge assessments noted 2. Disposition: Patient is discharged home. 3. Condition on discharge, stable and improved. 4. Diet: regular diet 5. Activities: resume normal activities as per neurosurgery instructions 6. Follow-Up: 1. Primary care provider in one week 2. 7. Medications at the Time of Discharge: Home Medications 3 Medication Instructions Recorded Confirmed Type gabapentin 300 mg capsule 300 mg PO BID #2 cap 12/27/16 06/27/17 Clinic oxycodone-acetaminophen 10 mg-325 1 tab PO Q6H PRN #90 tab 06/26/17 06/27/17 Rx mg tablet Cyclobenzaprine HCl [Flexeril] 10 mg PO TID 06/27/17 06/27/17 History Diazepam [Valium] 10 mg PO TID 06/27/17 06/27/17 History Oxycodone HCl/Acetaminophen 1 tab PO Q6H PRN 06/27/17 06/27/17 History [Oxycodone-Acetaminophen 5-325] Sulfameth/Trimeth 800/160 Tab 1 ea PO BID 06/27/17 06/27/17 History [Bactrim DS 800/160 Tab] Patient's stated that the patient had finished his Bactrim therapy. 8. Time, care, counseling and coordination of care for this discharge is less than 30 minutes. Exam - Vitals Vital Signs: Vital Signs Temperature 97 F Temperature Source Temporal Artery Scan Pulse Rate [Apical] 92 Pulse Rate [Pulse Oximeter] 97 Respiratory Rate 20 Blood Pressure [Right Arm] 131/78 Pulse Ox 96 Oxygen Flow Rate 95 Oxygen Delivery Method Room Air Weight 228 lb 9.6 oz - General General Appearance: No Acute Distress, Cooperative - Eye Eye Exam: POSITIVE: No Scleral Icterus - ENT ENT Exam: POSITIVE: Mucous Membranes Moist - Neck Additional Neck Exam Details: Posterior incision is clean, dry, intact krystina are present. No erythema, no drainage. - Respiratory Respiratory Exam: POSITIVE: Clear to Auscultation - Bilaterally, Breathing Non Labored - Cardiovascular Cardiovascular Exam: POSITIVE: RRR, No Murmur, No Clicks, No Gallops, No Rubs, No JVD - GI/Abdominal GI/Abdominal Exam: POSITIVE: Normal Bowel Sounds, Non Tender, Non Distended, Soft - Extremities Extremities Exam: POSITIVE: No Clubbing Present, No Edema Present, No Cyanosis Present - Neurological Neurological Exam: POSITIVE: Alert, Oriented x 3, No Facial Droop, Speech Intact / Clear, Moves All Extremities Equally Data Peritnent Studies: 06/27/17 06/27/17 06/29/17 12:25 12:25 04:30 WBC 7.12 Hgb 13.0 L Hct 39.5 L Plt Count 405 H ESR 90 H Sodium Potassium Chloride Carbon Dioxide BUN Creatinine Glucose Calcium Total Bilirubin 0.3 AST 24 ALT 37 Alkaline Phosphatase 79 Troponin I < 0.012 C-Reactive Protein 8.3 H Total Protein 7.3 Albumin 3.9 Globulin 3.4 06/29/17 04:30 WBC Hgb Hct Plt Count ESR Sodium 139 Potassium 4.3 Chloride 98 Carbon Dioxide 30 BUN 15 Creatinine 1.0 Glucose 97 Calcium 9.5 Total Bilirubin AST ALT Alkaline Phosphatase Troponin I C-Reactive Protein Total Protein Albumin Globulin [address] [facility] [place] [address] PH: DD: [phone] FAX: [phone] ~DIAGNOSTIC IMAGING REPORT~ Patient: Gabe Choi : 1960 Sex: M Age: 56 Exam Name: MRI Lumbar Spine WO Contrast Exam Date: 06/28/17 Report # : [id number] CPT Code: 04799 EMR/MR #: [id number] Ordering: TATO GARZA Admiting: BREANN JENNINGS MD. Primary: NONE,NONE Attending: BREANN JENNINGS MD. Signed EXAM: MR Lumbar Spine Without Intravenous Contrast CLINICAL HISTORY: post operative back pain TECHNIQUE: Magnetic resonance images of the lumbar spine without intravenous contrast in multiple planes. COMPARISON: Lumbar spine x-rays dated 02/15/17, lumbar spine MRI dated 12/20/16. FINDINGS: Vertebrae: Post surgical changes from posterior john and transpedicular screw fixation spanning L5-S1 with associated laminectomies. Marrow: No significant change in the increased T1-weighted and T2- weighted signal intensity along the posterior half of the T12 vertebral body, previously characterized as a hemangioma. Spinal cord: The conus terminates at T12-L1. Soft tissues: No abnormal fluid collections seen in the soft tissues. DISCS/SPINAL CANAL/NEURAL FORAMINA: T12-L1: Small broad-based disc bulge without significant central or foraminal stenosis. L1-L2: Unremarkable. No significant disc disease. No stenosis. L2-L3: Broad-based disc bulge without significant central or foraminal stenosis. L3-L4: Broad-based disc bulge without significant central foraminal stenosis. L4-L5: The particulars/foraminal disc bulge with an annular tear. Disc bulge impinges upon the thecal sac without significant central canal stenosis, which has AP diameter of 14 mm. Mild narrowing of the left neural foramen. L5-S1: Disc osteophyte complex and bulge impinges upon the thecal sac. Status post laminectomy. No stenosis. IMPRESSION: 1. Post surgical changes from posterior john and transpedicular screw fixation spanning L5-S1 with associated laminectomy. 2. L4-5 left articular/foraminal disc bulge with an annular tear. Disc bulge mildly narrows the left neural foramen. 3. Small broad-based disc bulges at T12-L1, L2-3, and L3-4, without significant foraminal or central canal stenosis. 4. Unchanged appearance of a T12 vertebral body lesion, previously characterized as a hemangioma. Dictated By: Sky Farah MD., PHD. Signed By: 06/28/17 1344 Sky Farah MD., PHD. [address] [facility] [place] [address] PH: DD: [phone] FAX: [phone] ~DIAGNOSTIC IMAGING REPORT~ Patient: Gabe Choi : 1960 Sex: M Age: 56 Exam Name: MRI Thoracic Spine [facility] Exam Date: 06/28/17 Report # : [id number] CPT Code: 03633 EMR/MR #: [id number] Ordering: TATO GARZA Admiting: BREANN JENNINGS MD. Primary: NONE,NONE Attending: BREANN JENNINGS MD. Signed EXAM: MR Thoracic Spine Without and With Intravenous Contrast CLINICAL HISTORY: post op back pain TECHNIQUE: Magnetic resonance images of the thoracic spine without and with intravenous contrast in multiple planes. COMPARISON: CT of the thoracic spine dated 06/27/17. MRI of the lumbar spine dated 06/28/17. Lumbar spine MRI dated 12/20/16. FINDINGS: Vertebrae: Patient is status post anterior cervical spine fixation as well as posterior fixation spanning T1 and T2. No acute fracture. Marrow: Incidental note is again made of a T2 hyperintense hemangioma along the posterior aspect of T12, unchanged compared to the prior lumbar MRI exams. Discs/spinal canal/neural foramina: No acute findings. No significant disc disease. No spinal canal stenosis. Spinal cord: Unremarkable. Normal signal. No abnormal enhancement. Soft tissues: A 7.5 x 7.2 x 4.0 cm T2 hyperintense, T1 hypointense, non-walled, nonenhancing fluid collection is seen in the subcutaneous soft tissues posteriorly, spanning the levels of C7-T3. IMPRESSION: 1. Patient is status post anterior cervical spine fixation as well as posterior thoracic spine fixation spanning T1 and T2. 2. A 7.5 x 7.2 x 4.0 cm nonenhancing fluid collection in the posterior subcutaneous soft tissues, spanning the levels of C7-T3. This most likely represents a postsurgical seroma. Dictated By: Sky Farah MD., PHD. Signed By: 06/28/17 1457 Sky Farah MD., PHD. [address] [facility] [place] [address] PH: DD: [phone] FAX: [phone] ~DIAGNOSTIC IMAGING REPORT~ Patient: Gabe Choi : 1960 Sex: M Age: 56 Exam Name: MRI Cervical Spine [facility] iDone Exam Date: 06/28/17 Report # : [id number] CPT Code: 94675 EMR/MR #: [id number] Ordering: TATO GARZA Admiting: BREANN JENNINGS MD. Primary: NONE,NONE Attending: BREANN JENNINGS MD. Signed EXAM: MR Cervical Spine Without and With Intravenous Contrast CLINICAL HISTORY: post op back pain TECHNIQUE: Magnetic resonance images of the cervical spine without and with intravenous contrast in multiple planes. COMPARISON: CT of the cervical spine and thoracic spine dated 3 or 118. MRI of the lumbar spine obtained 06/28/17 and 12/20/16. FINDINGS: Vertebrae: Posterior nonenhancing granulation tissue versus fluid at the levels of C6-T2 where there has been resection of the posterior spinal elements. The patient is status post anterior plate and screw fixation of the cervical spine spanning C3-C7 and posterior fixation spanning C3-T2. No acute fracture. Spinal cord: Unremarkable. Normal signal. No abnormal enhancement. Soft tissues: An 8.3 x 7.5 x 3.6 cm nonenhancing subcutaneous fluid collection is seen posteriorly, spanning the approximate levels of C5-T3. DISCS/SPINAL CANAL/NEURAL FORAMINA: No intra-axial fluid collection seen in the canal or abnormal enhancement. Visible hardware degrades evaluation for spinal or foraminal stenosis. IMPRESSION: 1. An 8.3 x 7.5 x 3.6 cm posterior nonenhancing subcutaneous fluid collection, spanning the approximate levels of C5-T3 most likely represents a post surgical seroma. 2. Posterior nonenhancing granulation tissue versus seroma at the levels of C6-T2 where there has been resection of the posterior spinal elements. Dictated By: Sky Farah MD., PHD. Signed By: 06/28/17 1513 Sky Farah MD., PHD. [address] [facility] [place] [address] PH: DD: [phone] FAX: [phone] ~DIAGNOSTIC IMAGING REPORT~ Patient: Gabe Choi : 1960 Sex: M Age: 56 Exam Name: CT CTA Chest Non-Coronary [facility] Exam Date: 06/27/17 Report # : [id number] CPT Code: 87447 EMR/MR #: [id number] Ordering: OLU ADRIAN Admiting: BREANN JENNINGS MD. Primary: NONE,NONE Attending: BREANN JENNINGS MD. Signed CT ANGIOGRAM OF THE CHEST, 06/27/2017 2:13 PM : Clinical History: Back pain. Hypoxia. Recent neck surgery. Previous Exam: None at this facility. Scans are performed from the base of the neck to the lower lung bases following IV administration of 65 mL of Isovue 370. Proprietary automated bolus tracking software was not used to verify the timing of the injection. The base of the neck and thoracic inlet are normal, but the lower neck region is obscured by metallic artifacts from the recent neck surgery. There are no abnormal axillary, supraclavicular, mediastinal, or hilar nodes. The heart is normal. There is aneurysmal dilatation of the ascending aorta with AP and transverse diameters of 35 mm. There is no evidence of an aortic dissection. There is pulmonary material hypertension without evidence of pulmonary embolism or pulmonary embolism with infarction. Bullae are present in the apices indicating the patient does have bullous emphysema. There is what most likely represents pleural thickening posteriorly in both lungs. No pulmonary nodules are identified. The limited views of the adrenal glands, liver, pancreas, and spleen are normal. READIN. There is no evidence of pulmonary embolism or pulmonary embolism with infarction. There is pulmonary arterial hypertension. 2. Bullous emphysema. Pleural thickening is suspected posteriorly. There is no acute infiltrate or effusion. 3. Aneurysmal dilatation of the ascending aorta with AP and transverse dimensions of 35 mm. Dictated By: 06/27/17 1653 JULIA REECE MD. Signed By: 06/27/17 1702 JULIA REECE MD. Patient Problems - Patient Problem List (1) Status post cervical spinal fusion Current Visit: Yes Status: Acute Code(s): Z98.1 - Arthrodesis status Category: Medical (2) Seroma Current Visit: Yes Status: Acute Category: Medical (3) Intractable back pain Current Visit: Yes Status: Resolved Code(s): M54.9 - Dorsalgia, unspecified Category: Medical (4) COPD (chronic obstructive pulmonary disease) Current Visit: Yes Status: Acute Code(s): J44.9 - Chronic obstructive pulmonary disease, unspecified Qualifiers: COPD type: emphysema Emphysema type: unspecified Qualified Code(s): J43.9 - Emphysema, unspecified Category: Medical
--- NOTE | 2017-06-30 12:27 | PT.PROG ---
Progress Note Progress Note: S: Pt. states he is doing ok. States he does not like the heat, but agrees to the estim. O: Treatment consisted of manual therapy including placing IFC on patients neck/ thoracic region to assist with pain control. Instructed nursing that they may also place estim on him if needed. A: No significant changes noted this visit. Will check in again tomorrow and see if more therapy can be tolerated. P: Continue per POC to increase strength and activity tolerance. Nova Bass, RESIDENT CARE ASSOCIATE
--- NOTE | 2017-07-01 11:02 | PTI REPORT ---
Thank you for the referral of Gabe Choi. He was seen on 06/28/17 for an inpatient evaluation status post lower cervical neck fusion. SUBJECTIVE: The patient is a 56-year-old male. The patient reports he is in constant pain which he rates as an 8/10 on the verbal analog scale (0=no pain, 10=worst pain) . He states his pain jumps up to 19/10. He states the pain is located between his shoulder blades and is sharp in nature. He states the only time his pain decreases is when he is perfectly still and his pain drops down to 6/10. The patient denies any other pain and reports he lives at home with his . The patient states he was fully independent prior to surgery and since surgery has used a front wheeled walker and contact guard assist to ambulate short distances. The patient states he feels fatigued and very weak. The patient denies any shortness of breath and states he can feel the bottoms of his feet for the first time and is very excited about that. PAST MEDICAL HISTORY: Past medical history can be found in the patient's medical record. OBJECTIVE FINDINGS: Bed mobility: The patient completed bed mobility of rolling right to left with mod assist. Transfers: The patient was able to complete sit to stand transfer with mod assist with front wheeled walker. Ambulation: The patient declined to ambulate today secondary to pain between shoulder blades. Range of motion: Range of motion of upper and lower extremities was within functional limits. Strength: Upper extremity strength is 4-/5 throughout bilaterally. Lower extremity strength bilaterally throughout is 3-/5. Balance: The patient demonstrates fair static sitting balance. Dynamic sitting balance is poor. Standing balance not assessed at this time secondary to the patient declining to participate. ASSESSMENT: The patient has objective and subjective symptoms including generalized weakness and high risk of falls and would benefit from continued skilled care at this time. Short-Term Goals: To be met by discharge from inpatient: Patient will demonstrate 3/5 bilateral lower extremity strength. Patient will be able to complete sit to stand transfer with supervision. Patient will be able to ambulate 50 feet with least restrictive assistive device and supervision. Patient will have fair static and dynamic sitting balance and standing balance will be assessed. Long-Term Goals: To be met following discharge from inpatient: Patient will be able to ambulate 130 feet for community ambulation with least restrictive assistive device. Patient will demonstrate 4/5 bilateral lower extremity strength for carryover for safety with transfers and ambulation. TREATMENT PLAN: Patient will be seen B.I.D during the week and one time per day over the weekend as an inpatient to address the above goals and objectives. INITIAL TREATMENT: Treatment today consisted of the initial evaluation followed by bed mobility, transfer activities, range of motion, and manual muscle testing. The patient was then left in bed with heat pack under shoulders and neck, neck collar on, call button within reach, in no apparent distress and with in room. DANTE
== END 2017-06-29 15:26 | disposition home or self-care (01) | DRG 948 ==
LOC: MED/SURG 12:03 → ER 12:03
PROVIDERS: ADMIT Internal Medicine; ATTEND Internal Medicine